=== PATIENT | female | born 1985 | race African-American/Black ===

== ENCOUNTER 2017-09-05 20:56 | Emergency (ER) | payer MEDICAID ==
[~2017-09-05 20:56] MED LIST: PREN0.01 PO; PROM1SUP12 PR; Z.0.NO CURRENT MEDS
[2017-09-05 21:46] VITALS: BP 162/76; PULSE 85; RESP 16; TEMP 97.8; O2SAT 100
[2017-09-05] MEDS ORDERED: ZANT150T2 PO (22:37)
[2017-09-05] MEDS ORDERED: DIPH25CA PO (22:37)
[2017-09-05] MEDS ORDERED: PRED20 PO (22:37)
--- NOTE | 2017-09-05 22:37 | PD ---
HPI Chief Complaint: Bite or Sting Time Seen by Provider: 22:13 Travel History International Travel<30 days: No Contact w/Intl Traveler<30days: No Traveled to known affect area: No History of Present Illness HPI The patient is a 32-year-old female who presents to the emergency department for an insect bite to the posterior aspect of the right upper extremity. The patient states she got off work last night at approximately 8:30 PM, was getting in her car when she was stung by an insect, possibly a spider. The patient states she felt the bite and/or staying at the time, now notes some swelling to the posterior aspect of the right arm with mild swelling, erythema, itching, and mild pain. She denies any difficulty with flexion-extension of the elbow or shoulder. She denies any fever, chills, or sweats. She denies any history of significant allergic reactions to insect bites in the past. She denies any swelling of the tongue or lips. She denies any wheezing or shortness of breath. She denies any associated nausea or vomiting. PFSH Past Medical History Medical History: Denies Significant Hx Diminished Hearing: No Genitourinary: Yes (UTI ) ?: Not : 3 Para: 2 Miscarriage: 0 : 0 Ovarian Cysts: Yes Past Surgical History Section: Yes (X3) Gynecologic Surgery: Yes (C- SECTION X 1) Hysterectomy: Yes Social History Alcohol Use: No Tobacco Use: No Substance Use: No Allergies-Medications (Allergen,Severity, Reaction): Coded Allergies: No Known Allergies (Verified , 04/21/11) Reported Meds & Prescriptions Reported Meds & Active Scripts Active Phenergan (Promethazine HCl) 25 Mg Sup 25 Mg VT Q4HPRN FOR NAUSEA/VOMITING Vit ( Plus) (Prenat Multivit/[place]/Iron/Folic Ac) Tab 1 Tab PO DAILYPC Reported No Current Meds (Miscellaneous Medication) Misc Review of Systems General / Constitutional: No: Fever HENT: No: Other (Denies any swelling of the tongue or lips) Respiratory: No: Shortness of Breath, Wheezing Gastrointestinal: No: Nausea, Vomiting Musculoskeletal: Positive: Edema, Pain Skin: Positive Itching Neurologic: No: Dizziness Physical Exam Narrative GENERAL: Awake, alert, pleasant 32-year-old female who appears her stated age and is in no acute respiratory distress. SKIN: Focused skin assessment warm/dry. Circular elevated erythematous area in the posterior aspect the left upper extremity which blanches. No visible stinger present. HEAD: Atraumatic. Normocephalic. EYES: Pupils equal and round. No scleral icterus. No injection or drainage. ENT: No nasal bleeding or discharge. Mucous membranes pink and moist. No angioedema of the lips, tongue, or uvula noted. NECK: Trachea midline. No JVD. CARDIOVASCULAR: Regular rate and rhythm. No murmur appreciated. RESPIRATORY: No accessory muscle use. Clear to auscultation. Breath sounds equal bilaterally. No wheezing noted. MUSCULOSKELETAL: No obvious deformities. No clubbing. No cyanosis. Mild edema with an elevated erythematous blanching area in the posterior aspect of the right upper extremity of the distal one third of the humeral area. NEUROLOGICAL: Awake and alert. No obvious cranial nerve deficits. Motor grossly within normal limits. Normal speech. PSYCHIATRIC: Appropriate mood and affect; insight and judgment normal. Data Data Last Documented VS Vital Signs Date Time Temp Pulse Resp B/P (MAP) Pulse Ox O2 Delivery O2 Flow Rate FiO2 09/05/17 21:46 97.8 85 16 162/76 (104) 100 Orders Orders Prednisone (Deltasone) (09/05/17 22:45) Diphenhydramine (Benadryl) (09/05/17 22:45) MDM Medical Decision Making Medical Screen Exam Complete: Yes Emergency Medical Condition: Yes Medical Record Reviewed: Yes Differential Diagnosis Differential diagnosis includes allergic reaction, insect bite, abscess, cellulitis, anaphylaxis. Narrative Course It appears the patient has a localized allergic reaction to possible insect bite. The area swollen, edematous, mildly tender, and pruritic. I do not believe this is an abscess. Therefore, patient will be treated with prednisone , Benadryl, Zantac. She is advised to follow-up with her primary physician. Cool compresses to the affected area. Return if symptoms worsen or progress. Diagnosis Primary Impression: Allergic reaction to insect bite Patient Instructions: General Instructions Additional Instructions: Medications as directed. Cool compresses to the right upper extremity. Follow- up with your primary physician. Return if symptoms worsen or progress. Med/Other Pt SpecificInfo: Prescription(s) given Scripts Ranitidine (Zantac) 150 Mg Tab 150 MG PO BID for Reduce Stomach Acid for 4 Days, #8 TAB 0 Refills Prov: Tad Yuan MD 09/05/17 Diphenhydramine (Diphenhydramine) 25 Mg Cap 25 MG PO Q6H Y for ALLERGIES, #20 CAP 0 Refills Prov: Tad Yuan MD 09/05/17 Prednisone (Prednisone) 20 Mg Tab 40 MG PO DAILY for 4 Days, #8 TAB 0 Refills Take 40 mg (2 tablets) daily for 5 days Prov: Tad Yuan MD 09/05/17 Disposition: 01 DISCHARGE HOME Condition: Stable Tad Yuan MD Sep 05, 2017 22:37
[2017-09-05] MEDS ORDERED: diphenhydrAMINE HCL 25 MG CAP PO ONE (22:45)
[2017-09-05] MEDS ORDERED: predniSONE 20 MG TAB PO ONE (22:45)
== END 2017-09-05 22:54 | disposition home or self-care (01) ==
LOC: NEPD 20:56
DX: T78.49XA Other allergy, initial encounter (principal); S40.861A Insect bite (nonvenomous) of right upper arm, initial encounter; W57.XXXA Bitten or stung by nonvenomous insect and other nonvenomous arthropods, initial encounter
CPT/HCPCS: 99283; J7512